=== PATIENT | female | born 1995 | race Two or more races ===

== ENCOUNTER 2025-02-01 16:55 | Emergency (ER) | payer MEDICAID, SELFPAY ==
[2025-02-01 17:32] VITALS: BP 161/93; PULSE 81; RESP 16; TEMP 36.9; O2SAT 99; BMI 19.0
--- NOTE | 2025-02-01 17:38 | XR_ITS ---
Examination: Pelvic ultrasound, transabdominal, complete Technique: Transabdominal ultrasound of the pelvis performed using grayscale imaging Date and time of exam: February 01, 2025, 1810 hours INDICATIONS: Pelvic pain and vaginal bleeding beginning 10 days ago. FINDINGS: Uterus 7.0 cm small cyst benign in the uterine body on the left 9 mm Endometrial stripe 0.8 cm No intrauterine gestation Right ovary 2.6 cm arterial flow Left ovary 3.4 cm arterial flow No fluid in the cul-de-sac IMPRESSION: No uterine solid mass or intrauterine gestation
--- NOTE | 2025-02-01 17:42 | PD.EDRME ---
Rapid Medical Screening Exam RME Arrival date/time: 02/01/25 16:55 29-year-old female presents to the Emergency Department today states she been on her period for 10 days patient reports vaginal bleeding Chief Complaint: Vaginal Bleeding Vital signs: Vital Signs Temperature 98.5 F 02/01/25 17:32 Pulse Rate 81 02/01/25 17:32 Respiratory Rate 16 02/01/25 17:32 Blood Pressure 161/93 H 02/01/25 17:32 Pulse Oximetry (%) 99 02/01/25 17:32 Oxygen Delivery Method Room Air 02/01/25 17:32 Vital signs reviewed by provider: Yes Exam: On exam patient well-appearing patient does not appear ill or toxic patient hemodynamically Clinical Impression: Lab work and imaging ordered
[2025-02-01 17:59] LABS: Basophils # (Auto) 0.1 Thou/mm3 (0.0-0.2); Basophils % (Auto) 1 % (0-2.5); Eosinophils # (Auto) 0.1 Thou/mm3 (0.0-0.5); Eosinophils % (Auto) 1 % (0-10); Hematocrit 42.2 % (36.0-46.0); Hemoglobin 14.4 g/dL (12.0-16.0); Immature Granulocytes Auto 0.01 Thou/mm3 (0.00-0.00); Lymphocytes # (Auto) 3.6 Thou/mm3 (1.0-4.8); Lymphocytes % (Auto) 44 % (10-50); Mean Corpuscular HGB Conc 34.1 g/dl (31.0-37.0); Mean Corpuscular Hemoglobin 29.0 pg (25.0-35.0); Mean Corpuscular Volume 85 fL (80-100); Monocytes # (Auto) 0.7 Thou/mm3 (0.0-0.8); Monocytes % (Auto) 9 % (0-12); Neutrophils # (Auto) 3.6 Thou/mm3 (1.8-7.7); Neutrophils % (Auto) 45 % (37-80); Nucleated Red Blood Cell # 0.00 Thou/mm3 (0.00-0.00); Nucleated Red Blood Cell % 0 /100 WBC (0); Platelet Count 286 Thou/mm3 (140-440); RDW Standard Deviation 40.4 fL (36.4-46.3); Red Blood Count 4.96 Miln/mm3 (4.00-5.20); White Blood Count 8.1 Thou/mm3 (3.6-11.0)
[2025-02-01 18:08] LABS: HCG,Qualitative Serum Positive
[2025-02-01 18:19] LABS: Alanine Aminotransferase < 7 U/L (10-49); Albumin, Serum 5.3 gm/dL (3.5-5.0); Albumin/Globulin Ratio 1.9 (1.2-2.2); Alkaline Phosphatase 70 U/L (46-116); Anion Gap 9 (7-16); Aspartate Amino Transferase 23 U/L (0-34); BUN/Creatinine Ratio 9 Ratio (12-20); Bilirubin,Total 0.3 mg/dL (0.3-1.2); Blood Urea Nitrogen 6 mg/dL (9-23); Calcium 9.8 mg/dL (8.3-10.6); Calcium (Corrected) 9.8 mg/dL (8.5-10.1); Carbon Dioxide 25.6 mMol/L (20.0-31.0); Chloride 107 mMol/L (98-107); Creatinine (Component) 0.7 mg/dL (0.6-1.3); Estimated Creatinine Clearance 79.2 mL/min (>60); Globulin 2.8 gm/dL (2.3-3.5); Glucose 96 mg/dL (74-106); Osmolality,Calculated 280 (275-295); Potassium 4.4 mMol/L (3.4-5.1); Sodium 142 mMol/L (136-145); Total Protein 8.1 gm/dL (5.7-8.2); eGFR > 60 See Note
[2025-02-01 18:22] LABS: INR 1.0 (0.9-1.3); Partial Thromboplastin Time 26.5 Seconds (22.0-36.0); Prothrombin Time 10.3 Seconds (9.0-12.2)
[2025-02-01 22:37] VITALS: BP 149/96; PULSE 83; RESP 16; TEMP 37.3; O2SAT 99
--- NOTE | 2025-02-02 02:24 | PD.EDVAGBL ---
ED OB Contraction Preg RMI/HPI General Chief complaint: Vaginal Bleeding Stated complaint: HEAVY MENSTRAL CYCLE W/ CRAMPS Time Seen by Provider: 02/02/25 02:24 Arrival date/time: 02/01/25 16:55 RME / HPI RME / HPI Narrative: 02/01/25 16:55 29-year-old female presents to the Emergency Department today states she been on her period for 10 days patient reports vaginal bleeding Dr. Butts?s Main ED Evaluation: 29yo female presents to the ED for complaints of vaginal bleeding and pelvic cramping. Patient endorses having blood clots. Patient states there is a possibility of her being . Denies any N/V/D, fever, chills, or any other associated symptoms. NKA. Related Data Allergies Allergy/AdvReac Type Severity Reaction Status Date / Time No Known Allergies Allergy Verified 02/01/25 17:02 Review of Systems Review of Systems Systems Reviewed: All systems reviewed, normal except as documented Past Medical History Social History SMOKING STATUS: Never smoker ED Exam Narrative Physical exam: Generally patient is alert and in no obvious distress, heart regular rate and rhythm, lungs clear to auscultation equal bilaterally, abdomen soft bowel sounds present nondistended nontender, external pelvic exam showed no adnexal tenderness., Skin is warm pale and dry, neurologic exam shows [place] Coma Scale 15 Course Quality Measures none Orders Category Date Time Status US pelvic complete Stat Exams 02/01/25 17:38 Completed Beta HCG,Quantitative Stat Lab 02/02/25 02:53 Completed CBC Stat Lab 02/01/25 17:48 Completed Comprehensive Metabolic Panel Stat Lab 02/01/25 17:48 Completed HCG,Qualitative Serum Stat Lab 02/01/25 17:48 Completed Partial Thromboplastin Time Stat Lab 02/01/25 17:48 Completed Prothrombin Time with INR Stat Lab 02/01/25 17:48 Completed Type and Screen Stat Lab 02/01/25 17:48 Completed Vital Signs Vital signs: Vital Signs Temperature 98.5 F 02/01/25 17:32 Pulse Rate 81 02/01/25 17:32 Respiratory Rate 16 02/01/25 17:32 Blood Pressure 161/93 H 02/01/25 17:32 Pulse Oximetry (%) 99 02/01/25 17:32 Oxygen Delivery Method Room Air 02/01/25 17:32 Vaginal Bleeding MDM Narrative MDM Narrative: Scribe Attestation: 02/02/25 Isatu Fleming am scribing for and in the presence of Dr. Butts. Patient is not anemic with a hemoglobin of 14. test came back positive. Quantitative beta-hCG was 152. OB ultrasound showed an empty uterus and clear adnexa. No free fluid in the pelvis. Clinically I strongly doubt ectopic . This is either very early or a completed . Patient was notified of this fact. She is to follow-up with her doctor. Return to ER as needed or if condition worsens. Patient data External records reviewed:: [facility] previous records (Per chart review, patient has no previous ED visits or admissions to this facility.) Clinical information provided by:: patient Social determinants that could affect healthcare access:: none Patient has the following chronic illnesses:: none How is presenting disease/condition affected by chronic disease/condition?: no chronic disease Evaluation data The following diagnostics were reviewed and interpreted by me:: lab results and radiology exam(s) Lab and/or radiology exams considered but not ordered:: none Interpretation Summary: [facility] Report Signed Patient: PO HOSKINS Record#: [id number] Birthdate: 1995 Age/Sex: 29 / F Location: [facility] Attending Dr: Ordering Physician: Hue WARREN)Faustino NP Date of Service: 02/01/25 Procedure(s): US pelvic complete Accession Number(s): [id number] cc: Hue WARREN),Faustino PHAM; Alen Oro MD; NO PRIMARY/FAMILY,PHYSICIAN~ Examination: Pelvic ultrasound, transabdominal, complete Technique: Transabdominal ultrasound of the pelvis performed using grayscale imaging Date and time of exam: February 01, 2025, 1810 hours INDICATIONS: Pelvic pain and vaginal bleeding beginning 10 days ago. FINDINGS: Uterus 7.0 cm small cyst benign in the uterine body on the left 9 mm Endometrial stripe 0.8 cm No intrauterine gestation Right ovary 2.6 cm arterial flow Left ovary 3.4 cm arterial flow No fluid in the cul-de-sac IMPRESSION: No uterine solid mass or intrauterine gestation Dictated By: Alen Oro MD Signed By: <Electronically signed by Alen Oro MD in OV> 02/01/25 1949 Medications / Prescriptions Medications or Prescriptions considered but not ordered:: none Medication administrations:: none Consultations Consultation(s) initiated? (list below): No Diagnosis Vaginal Bleeding Differential Diagnosis: other (See MDM) Most likely diagnosis given after review of the tests above:: see clinical impression below Admission Indicated Admission indicated?: not indicated Admission Request Was there a request for admission?: No Disposition Plan Disposition Plan: Discharge Discharge Attestation Discharge Attestation: The patient and all family members were given an opportunity to ask questions and understood the discharge instructions. Discharge instructions specifically effects, indications for sooner follow up or return to the emergency department, and the expected course of current diagnosis. Patient condition: Stable Discharge Plan Plan Patient Disposition: HOME (Self Care) Prescriptions/Referrals Referrals: No Primary/Family,Physician [Primary Care Provider] - In 1 week Problem List Clinical Impression: Complete Patient/Caregiver Discharge Instructions Education Materials: ED MISCARRIAGE Completed Additional Instructions: You may continue to bleed for the next few days. Keep well-hydrated. Tylenol for pain. Follow-up with your doctor. Return to ER as needed or if condition worsens. Print Language: [place] Stand Alone Forms: [facility] Award Info., Patient Portal Info Letter
[2025-02-02 03:44] LABS: Beta HCG,Quantitative 152 mIU/mL (<5.0)
[2025-02-02 04:08] VITALS: BP 150/84; PULSE 71; RESP 16; O2SAT 100
== END 2025-02-02 04:09 | disposition home or self-care (01) ==
PROVIDERS: Nurse Practitioner Primary Care; Physician Assistant; Emergency Provider Emergency Medicine
DX: O03.9 Complete or unspecified spontaneous abortion without complication (principal)
CPT/HCPCS: 36415; 76856; 80053; 84702; 84703; 85025; 85610; 85730; 86850; 86900; 86901; 99283